=== PATIENT | female | born 1990 | race Two or more races ===

== ENCOUNTER 2017-05-06 20:17 | Emergency (ER) | payer MEDICAID ==
[~2017-05-06] VITALS: Ht 154.9 cm; Wt 58.1 kg
[2017-05-06 21:00] VITALS: BP 139/94
== END 2017-05-07 01:11 | disposition left against medical advice (07) ==
LOC: ER 20:17
DX: R51 Headache (principal); R07.81 Pleurodynia; Z53.21 Procedure and treatment not carried out due to patient leaving prior to being seen by health care provider
CPT/HCPCS: 70450